=== PATIENT | female | born 2005 | race Caucasian/White ===

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

== ENCOUNTER 2025-01-26 22:54 | Emergency (ER) | payer OTHER, SELFPAY ==
--- OUTSIDE RECORDS SUMMARY | 2025-01-26 23:00 | XMS_ITS | Clinical Summary ---
Author Organization [facility], [facility] Address [address] [place] [address] Phone Care Team Providers Care Manager Primary Care Name Role Phone Unavailable Primary Care Provider [...] 2 - Standard) 2021 COVID-19 Vaccine ( season) 2024 07/05/2021, 03/29/2021 Influenza Vaccine (#1) 2024 , 11/19/2018, 11/19/2018, Additional history exists DTaP/TDaP/Td (7 - Td or Tdap) 11/10/2026 11/10/2016, 10/21/2009, 10/21/2009, Additional history exists Hepatitis B Vaccine Completed 2005, 2005, 2005, Additional history exists Pneumococcal Vaccine 0-49 Aged Out 2006, 2005, 2005, Additional history exists No longer eligible based on patient's age to complete this topic HPV Completed 08/14/2017, 11/10/2016 Insurance [employer] [facility] [id number]
--- OUTSIDE RECORDS SUMMARY | 2025-01-26 23:00 | XMS_ITS | Clinical Summary ---
Author Organization [facility] Address [address] [place] [id number] Care Team Providers Care Lead Pressman Name Role Phone Emil Gifford DO Primary Care Prov ider Source Comments [facility] is fully rolled out with thefollowing exceptions:[facility] Allergies No known active allergies Medications cetirizine [...] Mass Index 24.2 11/20/2016 11:16 AM EDT Plan of Treatment Health Maintenance Due Date Last Done Comments HPV IMMUNIZATION (2 - 2-dose series) 05/13/2017 11/10/2016 MENINGOCOCCAL B VACCINE (1 of 2 - Standard) 2021 AMB SEASONAL FLU VACCINE (#1) 11/24/2024 COVID-19 Vaccine ( - season) 2024 DTAP/Tdap/Td IMMUNIZATION (7 - [...] patient's age to complete this topic Insurance [facility] Care Teams Lead Pressman Relationship Specialty Start Date End Date Emil Gifford DO [address] [place] [phone] PCP - General 11/20/16
[2025-01-26 23:04] VITALS: BP 128/73; PULSE 90; RESP 18; TEMP 36.6; O2SAT 98; BMI 22.4
[2025-01-26 23:15] VITALS: BP 123/79; PULSE 70; O2SAT 96
--- NOTE | 2025-01-26 23:17 | HMH.EDGENADL ---
Discharge Plan Disposition Patient Disposition: Home, Self-Care Condition: Good Prescriptions Prescriptions: New ondansetron 4 mg tablet,disintegrating 4 mg PO Q6H PRN (Reason: nausea and vomiting) Qty: 10 0RF No Action Lo Loestrin Fe 1 mg-10 mcg (24)/10 mcg (2) tablet 1 tab PO DAILY Qty: 28 11RF Vraylar 1.5 mg capsule 1.5 mg PO DAILY Qty: 30 2RF Vraylar 1.5 mg capsule 0RF Referrals Follow up/Referrals: Yonny Strong DO [Primary Care Provider, Family Practice] - See instructions Activity Restrictions/Add. Instructions Additional Instructions/Restrictions: You were evaluated in the ER and are believed to be appropriate for discharge at this time. Take the prescribed Zofran (ondansetron) as needed for nausea and vomiting. Drink plenty of fluids including water, Gatorade, Pedialyte to stay hydrated. Make an appointment with your primary care doctor for reevaluation in 2 to 3 days. Return to the ER with any new, worsening, or otherwise concerning symptoms as discussed. Clinical Impressions Clinical Impression: Nausea & vomiting Instructions Patient Instructions: DI for Diarrhea and Traveler's Diarrhea in Adults, DI for Diarrhea and Traveler's Diarrhea in Children, DI for Nausea in Adults, DI for Nausea in Children Print Language Print Language: Syriac Discharge ED Provider: Alix Kaur General Adult HPI General Chief complaint: Nausea/Vomiting/Diarrhea Stated complaint: Throwing Up; Dizzy; Stomache; Headache Time Seen by Provider: 01/26/25 23:08 Mode of Arrival: Ambulatory Source of Information: Patient Description of Symptoms (Recalled from ER Triage Doc. by RN): pt to ED with c/o dizziness, N/V, and headache x3 hours. History of Present Illness HPI narrative: 20-year-old female presents to the ER with headache, nausea, vomiting. She states she has been lightheaded with her vomiting as well. No chest pain, palpitations, or difficulty breathing. No syncope. Patient states she developed nausea in the last few hours and it has been accompanied by a gradually worsening headache. Not thunderclap in onset, not maximal intensity at onset. Patient reports she attempted to take ibuprofen for headache but immediately had emesis. She describes nonbloody, nonbilious emesis. She reports mild discomfort around her bellybutton but states it is not tender to the touch. No diarrhea. Patient denies cough or congestion. No dysuria or hematuria. LMP last week. No numbness, tingling, or weakness. Ambulatory into the ER. Related Data Previous Rx's ?Medication ?Instructions ?Recorded norethindrone 1 mg-ethinyl 1 tab PO DAILY #28 tabs 08/06/24 estradiol 10 mcg (24)-iron 10 mcg(2) tablet (Lo Loestrin Fe) cariprazine 1.5 mg capsule 1.5 mg PO DAILY #30 caps 12/26/24 (Vraylar) ondansetron 4 mg disintegrating 4 mg PO Q6H PRN nausea and 01/27/25 tablet vomiting #10 tabs Allergies Allergy/AdvReac Type Severity Reaction Status Date / Time No Known Allergies Allergy Verified 12/26/24 10:58 [facility] Disclaimer: The information contained in this section may have been updated after the patient was seen, as this information can be updated by other users. Medical History Constipation Rash Family history of bipolar disorder PCOS (polycystic ovarian syndrome) Hx of ovarian cyst Allergies Depression Anxiety Nausea & vomiting Surgical History Hx of tonsillectomy Family History Grandfather Cancer Grandmother Cancer Coronary artery disease Diabetes Father Coronary artery disease Mother Coronary artery disease Social History Smoking Status: Current every day smoker tobacco type: cigarettes and e-cigarettes alcohol intake: never substance use type: denies use current occupational status: unemployed Travel in the last 8 weeks?: None household members: family housing: house Have you lived/traveled outside [place] in past 30 days?: No Contact w/someone who lives/traveled outside US past 30 days?: No Exposure to someone with infectious disease in past 14 days?: No Do you have a fever (greater than 100.4 F or 38 C)?: No Have you tested positive for COVID-19?: No Exposed to someone with COVID-19 in past 14 days?: No Do you have a sore throat?: No Do you have a cough?: No Do you have any weakness?: No Do you have any diarrhea?: No Are you experiencing any unusual bleeding?: No Do you have any muscle aches/pain?: No Do you have any abdominal pain?: Yes Are you experiencing loss of taste or smell?: No Other Medical History Have you received the Flu Vaccine for this season: Yes Have you received the Pneumonia Vaccine: No ROS Obtained: Yes Systems reviewed as appropriate & no additional complaints except as documented per HPI Physical Exam General General appearance: alert and in no apparent distress Head Head exam: atraumatic and normocephalic Eye Eye exam: Present PERRL and EOMI; Absent scleral icterus or conjunctival injection ENT ENT exam: Present normal oropharynx and mucous membranes moist Neck Neck exam: Present normal inspection and full ROM Chest Chest inspection: Present symmetric chest wall rise Respiratory Respiratory exam: Present wheezes; Absent respiratory distress or stridor Cardiovascular Cardiovascular exam: Present regular rate and normal rhythm Abdominal Exam Abdominal exam: Present soft; Absent distention, tenderness, guarding or rebound Comment: Patient reports periumbilical discomfort but no tenderness to palpation Extremities Exam Extremities exam: Present full ROM Neurological Exam Neurological exam: Present alert and oriented X3; Absent motor sensory deficit Psychiatric Psychiatric exam: Present normal affect and normal mood Skin Skin exam: Present warm and dry Medical Decision Making Medical Records Medical records reviewed: Yes I reviewed the patient's medical records. Screening: Per USPSTF and CDC recommendations, given the prevalence of disease in our region, it is our hospital?s policy to screen for HIV and viral Hepatitis for all patients aged 18 and over and those with ongoing risk factors. Praveen Inquiry Pt receiving controlled substance: No Vital Signs: 01/26/25 23:04 01/26/25 23:15 01/26/25 23:30 Temperature 97.8 F Temperature Source Oral Pulse Rate 70 66 Pulse Rate [Left Radial] 90 Respiratory Rate 18 Blood Pressure 123/79 118/75 Blood Pressure [Right Arm] 128/73 Blood Pressure Mean [Right Arm] 91 Blood Pressure Source [Right Arm] Automatic Cuff Blood Pressure Position [Right Arm] Sitting 02 Sat by Pulse Oximetry 98 96 98 Oxygen Delivery Method Room Air Lab Data Lab Results 01/26/25 23:00: WBC 7.5, RBC 4.87, Hgb 14.1, Hct 40.5, MCV 83.2, MCH 29.0, MCHC 34.8, RDW 11.6, Plt Count 392, MPV 8.6, Neut % (Auto) 46.6, Lymph % (Auto) 46.1, [place] % (Auto) 6.0, Eos % (Auto) 0.3, Baso % (Auto) 0.7, Neut # (Auto) 3.5, Lymph # (Auto) 3.5, [place] # (Auto) 0.5, Eos # (Auto) 0.0, Baso # (Auto) 0.1, Sodium 135 L, Potassium 3.5, Chloride 103, Carbon Dioxide 23, Anion Gap 12.5, BUN 8, Creatinine 0.60, Estimated Creat Clear 123, Estimated GFR 127, Est GFR ( Amer) 154, Glucose 93, Calcium 9.3, Total Bilirubin 0.6, AST 30, ALT 20, Alkaline Phosphatase 82, Total Protein 7.9, Albumin 4.9, Globulin 3.0, Albumin/Globulin Ratio 1.6, Lipase 72, Serum HCG, Qual Negative 01/26/25 23:59: Urine Color Yellow, Urine Appearance Clear, Urine pH 7.0, Ur Specific [place] 1.020, Urine Protein Negative, Urine Glucose (UA) Negative, Urine Ketones 2+, Urine Blood Negative, Urine Nitrate Negative, Urine Bilirubin Negative, Urine Urobilinogen 0.2, Ur Leukocyte Esterase Negative 01/26/25 23:00 01/26/25 23:00 Orders (Tests/Meds): ED MEDICATIONS Discontinued Medications Generic Name Dose Route Start Last Admin Trade Name Stasq PRN Reason Stop Dose Admin Lactated Ringer's 1,000 mls @ 999 mls/hr 01/26/25 23:15 01/27/25 00:46 Lactated Ringer's 1000 Ml Bag IV 01/27/25 00:15 Infused .Q1H1M ONE Infusion Ketorolac Tromethamine 15 mg 01/26/25 23:15 01/26/25 23:19 Ketorolac 15mg/Ml Vial IV 01/26/25 23:16 15 mg ONCE ONE Administration Ondansetron HCl 4 mg 01/26/25 23:15 01/26/25 23:20 Ondansetron 4mg/2ml Vial IV 01/26/25 23:16 4 mg ONCE ONE Administration ORDERS Category Date Time Status CBC w/Auto Diff [Complete Blood Count Auto Diff] Stat Lab 01/26/25 23:00 Completed CMP [Comprehensive Metabolic Panel] Stat Lab 01/26/25 23:00 Completed HCG Qualitative, Serum Stat Lab 01/26/25 23:00 Completed Lipase Stat Lab 01/26/25 23:00 Completed Urinalysis and Microscopic Stat Lab 01/26/25 23:59 Results Medical Decision Narrative: In summary, this 20-year-old female with no chronic medical conditions presents to the emergency department today with nausea, vomiting, headache, periumbilical discomfort. On initial evaluation patient is hemodynamically stable, afebrile, GCS 15, PERRLA and EOMI, no neurologic deficits, normal oropharynx, no lymphadenopathy, cardiopulmonary exam benign, patient reports periumbilical discomfort but has no tenderness to palpation, no rebound or guarding, completely benign abdominal exam, remainder of exam benign. Differential diagnosis includes but is not limited to viral syndrome, urinary tract infection, I considered the possibility of early pancreatitis, early appendicitis, but patient has no abdominal tenderness which is reassuring against both of these.. Based on these concerns, I ordered hematologic and serum labs, urine studies, lipase, with benign abdominal exam, normal vitals I am not going to immediately pursue radiographic imaging unless there is a significant lab derangement. Patient received Zofran, Toradol, IV fluids for treatment. Labs personally reviewed demonstrate normal CBC, no leukocytosis or anemia, CMP nonactionable, hCG negative, UA negative for findings of infection. Overall labs are very reassuring and nonactionable. On reassessment patient feels significantly improved, she is tolerating oral intake. I do not believe she requires any further workup at this time. Abdominal exam is still benign and she is tolerating oral intake so I think she is appropriate for discharge. She is comfortable with this plan. Zofran prescribed for outpatient management of symptoms. Patient was given instructions on symptomatic management, follow up instructions, and return precautions for the emergency department. Patient indicated understanding and was discharged in stable condition. Critical Care Critical Care Time Critical Care Time: No
[2025-01-26] MEDS: KETOROLAC 15MG/ML VIAL 15 MG IV (23:19)
[2025-01-26 23:20] LABS: Hematocrit 40.5 % (37.0-47.0); Hemoglobin 14.1 g/dL (12.2-16.2); Immature Granulocytes % 0.3 %; Mean Corpuscular HGB Conc 34.8 g/dL (31.8-35.4); Mean Corpuscular Hemoglobin 29.0 pg (27.0-31.2); Mean Corpuscular Volume 83.2 fl (81-99); Nucleated Red Blood Cells % 0 %; Platelet Count 392 K/mm3 (142-424); Red Blood Count 4.87 M/mm3 (4.20-5.40); Red Cell Distribution Width-SD 35.0 fL; White Blood Count 7.5 K/mm3 (4.5-13.0)
[2025-01-26] MEDS: ONDANSETRON 4MG/2ML VIAL 4 MG IV (23:20)
[2025-01-26] MEDS: LACTATED RINGERS 1000ML 1,000 ML 999 ML IV (23:20)
[2025-01-26 23:26] LABS: Alanine Aminotransferase 20 U/L (12-78); Albumin Level 4.9 g/dl (3.5-5.0); Albumin/Globulin Ratio 1.6 (1.1-1.8); Alkaline Phosphatase 82 U/L (38-126); Anion Gap 12.5 mEq/L (5-15); Aspartate Amino Transferase 30 U/L (14-36); Bilirubin,Total 0.6 mg/dl (0.2-1.3); Blood Urea Nitrogen 8 mg/dl (7-17); Calcium 9.3 mg/dl (8.4-10.2); Carbon Dioxide 23 mmol/L (22.0-30.0); Chloride 103 mmol/L (98-107); Creatinine Clearance Estimated 123 mL/min (50-200); Creatinine,Serum 0.60 mg/dl (0.52-1.04); Estimated Glomerular Filt Rate 127 ml/min (>60); GFR (African American) 154 ML/MIN (>60); Globulin 3.0 g/dL (1.3-3.2); Glucose 93 mg/dl (74-100); Potassium 3.5 mmoL/L (3.5-5.1); Sodium 135 mmol/L (136-145); Total Protein,Serum 7.9 g/dl (6.3-8.2)
[2025-01-26 23:27] LABS: Lipase 72 U/L (23-300)
[2025-01-26 23:30] VITALS: BP 118/75; PULSE 66; O2SAT 98
[2025-01-26 23:45] VITALS: PULSE 80; O2SAT 95
[2025-01-27 00:01] VITALS: PULSE 80; O2SAT 97
[2025-01-27 00:07] LABS: Microscopic, Urine URINE MICROSCOPIC (MICROSCOPIC)
[2025-01-27 00:14] LABS: Bilirubin,Urine Negative (Negative); Color,Urine YELLOW (Yellow); Glucose,Urine (UA) Negative (Negative); Ketones,Urine 2+ (Negative); Leukocyte Esterase,Urine Negative (Negative); PH,Urine 7.0 (5.0-8.5); Protein,Urine Negative (Negative); Specific Gravity, Urine 1.020 (1.005-1.030); Urobilinogen,Urine 0.2 EU/dl (0.2)
[2025-01-27 00:15] VITALS: PULSE 68; O2SAT 98
[2025-01-27 00:21] LABS: HCG Qualitative, Serum Negative (Negative)
[2025-01-27 00:30] VITALS: BP 144/81; PULSE 70; O2SAT 98
--- NOTE | 2025-01-27 00:40 | PC.NURSE ---
pt given crackers and dimple duke for PO challenge.
[2025-01-27 00:45] VITALS: PULSE 76; O2SAT 99
[2025-01-27 01:00] VITALS: BP 125/71; PULSE 70; O2SAT 99
[2025-01-27 01:02] LABS: Bacteria,Urine Trace /lpf; WBC,Urine Occasional #/hpf (0-3)
[2025-01-27 01:06] VITALS: BP 125/78; PULSE 71; RESP 18; TEMP 36.6; O2SAT 95
== END 2025-01-27 01:09 | disposition home or self-care (01) ==
PROVIDERS: Emergency Provider Emergency Medicine; PCP Student in an Organized Health Care Education/Training Program
DX: R11.2 Nausea with vomiting, unspecified (principal); R42 Dizziness and giddiness; F17.210 Nicotine dependence, cigarettes, uncomplicated
CPT/HCPCS: 80053; 81001; 83690; 84703; 85025; 96361; 96374; 96375; 99284; 99285; J1885; J2405; J7120